=== PATIENT | female | born 2005 | race Caucasian/White ===

== ENCOUNTER 2024-06-04 12:23 | Inpatient (IN) | payer OTHER ==
[~2024-06-04] VITALS: Ht 180.3 cm; Wt 81.6 kg
[2024-06-04] MEDS ORDERED: CALCIUM CARBONATE 500 MG CHEW PO PRN (21:15)
[2024-06-04] MEDS ORDERED: LACTATED RINGER'S 1,000 ML IV PRN (21:15)
[2024-06-04] MEDS ORDERED: MAGNESIUM HYDROXIDE/AL HYDROX 30 ML CUP PO PRN (21:15)
[2024-06-04 21:27] LABS: HEMATOCRIT 32.5 % (35.0-50.0); HEMOGLOBIN 11.2 g/dL (12.0-18.0); MCH 28.7 (27-36); MCHC 34.5 g/dl (30-36); MCV 83.2 fl (81-99); RBC 3.91 M/ul (4.3-5.7); RDW 13.8 (10.5-15.0)
[2024-06-04 21:36] LABS: AMPHETAMINES, URINE NEGATIVE (NEGATIVE); BARBITURATES, URINE NEGATIVE (NEGATIVE); BENZODIAZEPINE, URINE NEGATIVE (NEGATIVE); BUPRENORPHINE, URINE NEGATIVE (NEGATIVE); COCAINE, URINE NEGATIVE (NEGATIVE); ECSTASY, URINE NEGATIVE (NEGATIVE); FENTANYL, URINE NEGATIVE (NEGATIVE); METHADONE, URINE NEGATIVE (NEGATIVE); OPIATES, URINE NEGATIVE (NEGATIVE); OXYCODONE, URINE NEGATIVE (NEGATIVE); PHENCYCLIDINE, URINE NEGATIVE (NEGATIVE)
[2024-06-04 21:42] VITALS: BP 117/73
[2024-06-04 21:43] LABS: CANNABINOID, URINE NEGATIVE (NEGATIVE)
[2024-06-04] MEDS ORDERED: OXYTOCIN/0.9 % SODIUM CHLORIDE 30 UNITS/500 ML BAG IV SCH (21:45)
[2024-06-04] MEDS ORDERED: ROPIVACAINE 0.2% 200 ML BAG ONE (22:43)
[2024-06-04 23:00] LABS: ABO O; ANTIBODY SCREEN POSITIVE; RH NEGATIVE
[2024-06-04] MEDS ORDERED: LACTATED RINGER'S 500 ML IV PRN (23:15)
[2024-06-04] MEDS ORDERED: ROPIVACAINE 0.2% 200 ML BAG EPIDURAL SCH (23:15)
[2024-06-04] MEDS ORDERED: LACTATED RINGER'S 2,000 ML IV ONE (23:15)
[2024-06-04] MEDS ORDERED: ePHEDrine sulfate 5 MG/ML SYRINGE IV PRN (23:15)
[2024-06-04 23:35] LABS: ANTIBODY IDENTIFICATION ANTI-D
[2024-06-05] MEDS ORDERED: OXYTOCIN/0.9 % SODIUM CHLORIDE 30 UNITS/500 ML BAG IV SCH (01:45)
[2024-06-05] MEDS ORDERED: OXYCODONE/APAP 5/325 TAB PO PRN (04:00)
[2024-06-05] MEDS ORDERED: BENZOCAINE 60 ML AEROSOL TOP PRN (04:00)
[2024-06-05] MEDS ORDERED: CALCIUM CARBONATE 500 MG CHEW PO PRN (04:00)
[2024-06-05] MEDS ORDERED: MAGNESIUM HYDROXIDE 30 ML UDC PO PRN (04:00)
[2024-06-05] MEDS ORDERED: WITCH HAZEL/GLYCERIN 1 EA PAD TOP PRN (04:00)
[2024-06-05] MEDS ORDERED: ACETAMINOPHEN 325 MG TAB PO PRN (04:00)
[2024-06-05] MEDS ORDERED: OXYTOCIN/0.9 % SODIUM CHLORIDE 500 ML IV SCH (04:00)
[2024-06-05] MEDS ORDERED: MAGNESIUM HYDROXIDE/AL HYDROX 30 ML CUP PO PRN (04:00)
[2024-06-05] MEDS ORDERED: HYDROCORTISONE ACETATE 25 MG SUPP PR PRN (04:00)
[2024-06-05] MEDS ORDERED: IBUPROFEN 600 MG TAB PO PRN (04:00)
[2024-06-05] MEDS ORDERED: HYDROCODONE/ACETA 5/325 TAB PO PRN (04:00)
[2024-06-05 06:06] LABS: HEMATOCRIT 31.3 % (35.0-50.0); HEMOGLOBIN 10.7 g/dL (12.0-18.0); MCH 28.9 (27-36); MCHC 34.2 g/dl (30-36); MCV 84.6 fl (81-99); RBC 3.7 M/ul (4.3-5.7); RDW 13.7 (10.5-15.0)
[2024-06-05 07:49] LABS: ABO O
[2024-06-05 07:50] LABS: ANTIBODY SCREEN NEGATIVE; FETAL HEMOGLOBIN SCREEN NEGATIVE; RH NEGATIVE; RHIG DOSE 1; RHIG STATUS CANDIDATE
[2024-06-05] MEDS ORDERED: SENNOSIDES/DOCUSATE 1 EA TAB PO SCH (09:00)
--- NOTE | 2024-06-06 08:57 | PR ---
[facility] [address] [place], [place] [address] Signed PP Progress Notes Datetime Report Generated by CPN: 06/06/2024 08:57 SUBJECTIVE: [id number] Pain: Within Normal Limits Nausea/Vomiting: Denies Flatus: Yes Bowel Movement: No Vital Signs: [id number] Vital Signs: Reviewed; Within Normal Limits EXAM: Ongoing Cardiovascular: Normal Respiratory: Normal Abdomen/Uterus: Normal Lochia: Normal Vulva/Perineum: Not Done Breasts: Not Done CVA Tenderness: Normal Extremities: Normal Incision: Not Applicable Progress: Normal Exam Comments: Fundus firm U-2 nontender IMPRESSION/PLAN/PROCEDURES: [id number] Impression: Normal Progression Plan: Discharge Progress Notes: Pt seen and examined. Doing well. Ambulating, voiding, and tolerating full diet. Pain and lochia minimal. well. Desires d/c home. No concerns. Planning pp care in [place]. Undecided on pp contraception and we reviewed options. No questions or concerns. Was given Rhogam per protocol. Signing Physician: Emilie Pearl DO Copies: ~ *Electronically Signed* 06/06/24 0857 EMILIE PEARL (ALEX) DO PATIENT NAME: FIONA GIL PROGRESS NOTE DATE OF : 04 PHYSICIAN: EMILIE PEARL (JD) DO RPT #: [id number] REPORT IS CONFIDENTIAL AND NOT TO BE RELEASED WITHOUT AUTHORIZATION
== END 2024-06-06 10:15 | disposition home or self-care (01) | DRG 807 ==
LOC: FBC 20:57
PROVIDERS: ADMIT Obstetrics & Gynecology; ATTEND Obstetrics & Gynecology
PROC: 10E0XZZ Delivery of Products of Conception, External Approach (ICD-10-PCS; principal; 2024-06-04)
PROC: 0HQ9XZZ Repair Perineum Skin, External Approach (ICD-10-PCS; 2024-06-04)
PROC: 3E0R3BZ Introduction of Anesthetic Agent into Spinal Canal, Percutaneous Approach (ICD-10-PCS; 2024-06-04)
PROC: 00HU33Z Insertion of Infusion Device into Spinal Canal, Percutaneous Approach (ICD-10-PCS; 2024-06-04)
DX: O48.0 Post-term pregnancy (principal); Z37.0 Single live birth; Z3A.41 41 weeks gestation of pregnancy; O70.0 First degree perineal laceration during delivery; O69.81X0 Labor and delivery complicated by cord around neck, without compression, not applicable or unspecified; Z87.440 Personal history of urinary (tract) infections
CPT/HCPCS: 36415; 80307; 83030; 85027; 86850; 86870; 86900; 86901; A9270; J2790; J7121